=== PATIENT | female | born 1995 | race Two or more races ===

== ENCOUNTER 2019-09-16 23:14 | Emergency (ER) | payer MEDICAID ==
[~2019-09-16] VITALS: Ht 167.6 cm; Wt 61.2 kg
--- NOTE | 2019-09-16 23:20 | NUR ---
PT [facility] FOR ALCOHOL INTOXICATION, STRONG SMELL OF ALCOHOL ON ARRIVAL. PT HAD ONE EPISODE VOMITTING. PT AAOX2, DOZING INTERMITTENTLY. RESPIRATIONS EVEN AND UNLABORED. SKIN WARM AND INTACT. VITAL SIGNS STABLE. PLACED IN GOWN AND ON MONITOR, WILL CONTINUE TO MONITOR.
[2019-09-16] MEDS ORDERED: ONDANSETRON HCL/PF 4 MG/2 ML VIAL ONE (23:21)
[2019-09-16] MEDS ORDERED: ONDANSETRON HCL/PF - ER 4 MG/2 ML VIAL IV ONE (23:30)
--- NOTE | 2019-09-17 02:29 | NUR ---
PT RESTING COMFORTABLY IN BED. VITAL SIGNS STABLE. RESPIRATIONS EVEN AND UNLABORED. NO ACUTE DISTRESS NOTED AT THIS TIME. WILL CONTINUE TO MONITOR
--- NOTE | 2019-09-17 02:57 | NUR ---
PT ASLEEP, NO ACUTE DISTRESS NOTED, RESP EVEN AND UNLABORED. NO PAIN OR DISCOMFORT NOTED. CALL LIGHT WITHIN REACH WILL CONTINUE TO MONITOR PT.
--- NOTE | 2019-09-17 05:24 | NUR ---
PT AWAKE, AAOX4. VITAL SIGNS STABLE. NO ACUTE DISTRESS NOTED AT THIS TIME.
--- NOTE | 2019-09-17 06:10 | NUR ---
Patient discharged to home in stable condition. Written and verbal after care instructions given. Patient verbalizes understanding of instruction.IV removed. Catheter intact and site benign. Pressure and 4x4 applied to site. No bleeding noted.Pt ambulatory with a steady gait. Instructed not to drive, left with parents
[2019-09-17 06:13] VITALS: BP 109/68
== END 2019-09-17 06:13 | disposition home or self-care (01) ==
LOC: ER 23:16 → EDBD 23:16 → ER 09-17 06:13
DX: F10.129 Alcohol abuse with intoxication, unspecified (principal); Y90.9 Presence of alcohol in blood, level not specified
CPT/HCPCS: 96374; 99283; J2405